=== PATIENT | female | born 1955 | race Caucasian/White ===

== ENCOUNTER 2016-10-14 23:49 | Emergency (ER) | payer BC ==
--- NOTE | ~2016-10-14 | CT2 ---
[facility] A Service of [facility] RADIOLOGY TEXT RESULTS PATIENT: DIO WARNER LOCATION: SED : 55 UNIT #: [id number] AGE: [address]: Gage Rendon DO SEX: F ORDER DR: [id number] [place] [id number] E MR#: [id number] Acc #: [id number] NAME: DIO WARNER : 1955 SEX: F STUDY DATE/TIME: 10/15/2016 3:36 UNIT: SED ROOM: STUDY DESCRIPTION: CT Abd and Pelv W Cont Attending Physician: Gage Rendon Ordering Physician: Gage Rendon Primary Care Physician: Holly Schwartz M.D. MEDICAL IMAGING REPORT This report is preliminary unless electronic signature is present. EXAM CT abdomen and pelvis with contrast INDICATION Left upper quadrant abdominal pain. TECHNIQUE Contrast-enhanced CT of the abdomen and pelvis 100 mL of Isovue-370. This CT exam was performed with one or more of the following radiation dose reduction techniques: automatic exposure control, adjustment of mA and/or kV according to patient size, and iterative reconstruction. COMPARISON None. FINDINGS ABDOMEN WITH CONTRAST: Included lung bases are clear. The liver, spleen, kidneys, adrenal glands, pancreas are unremarkable. Multiple small stones in the gallbladder. No evidence for active inflammation. Bowel loops nondilated. PELVIS WITH CONTRAST: No pelvic mass or fluid. No aggressive appearing bone lesion. IMPRESSION 1. No acute findings in the abdomen or pelvis. 2. Uncomplicated cholelithiasis. Dictated by... [facility] A Service of [facility] RADIOLOGY TEXT RESULTS PATIENT: DIO WARNER LOCATION: SED : 55 UNIT #: [id number] AGE: [address]: Gage Rendon DO SEX: F ORDER DR: Po Beckwith M.D. THIS IS AN ELECTRONICALLY VERIFIED REPORT Po Beckwith M.D. at 10/15/2016 9:58 PM DELORIS/cristiane TD: 10/15/2016 10:09 JOB #: [id number] MEDICAL IMAGING REPORT Page 1 of 1
[~2016-10-14 23:49] MED LIST: ELESTRIN26 GM; PROGESTERONE; SYNTHROID PO; SYNTHROID25 MCG
[2016-10-15 02:05] LABS: BASOPHIL% 0.4 % (0-2.5); DIFF IND NO; EOSINOPHIL% 0.1 % (0.0-7.0); HEMATOCRIT 44.1 % (35.0-45.0); HEMOGLOBIN 15.2 gm/dL (12.0-16.0); LYMPHOCYTE# 0.9 X10e3 (1.0-3.5); LYMPHOCYTE% 11.4 % (17.0-45.0); MEAN CELL VOLUME 91.9 FL (83-96); MEAN CORPUSCULAR HEMOGLOBIN 31.7 PG (28-34); MEAN CORPUSCULAR HGB CONC 34.5 g/dL (30-36); MEAN PLATELET VOLUME 8.9 FL (6.5-11.5); MONOCYTE# 0.4 X10e3 (0-1.0); MONOCYTE% 5.5 % (3.0-12.0); NEUTROPHIL# 6.4 X10e3 (1.5-7.1); NEUTROPHIL% 82.6 % (40-75); PLATELET COUNT 219 X10e3 (140-420); RED CELL DISTRIBUTION WIDTH 12.7 % (11.0-15.5); WHITE BLOOD COUNT 7.7 X10e3 (4.0-10.5)
[2016-10-15 02:30] LABS: ALBUMIN SERUM 4.4 g/dL (3.5-5.0); BILIRUBIN, DIRECT 0.8 mg/dL (0.0-0.2); BILIRUBIN,INDIRECT 1.3 mg/dL (0.0-0.9); BILIRUBIN,TOTAL 2.1 mg/dL (0.2-2.0); BUN/CREATININE RATIO 17.77; CALCIUM SERUM 10.1 mg/dL (8.4-10.2); CREATININE SERUM 0.9 mg/dL (0.6-1.4); GLOM FILT RATE Estimated 69.1 mL/min (>60); POTASSIUM 3.8 mmol/L (3.5-5.1); PROTEIN TOTAL SERUM 7.6 g/dL (6.0-8.3)
[2016-10-15 03:28] LABS: URINE SOURCE CLEAN CATCH
[2016-10-15 03:31] LABS: URINE APPEARANCE CLEAR; URINE BILIRUBIN NEG (NEG); URINE BLOOD NEG (NEG); URINE COLOR YELLOW; URINE GLUCOSE NEG (NORM); URINE KETONE NEG (NEG); URINE LEUKOCYTE ESTERASE NEG (NEG); URINE NITRATE NEG (NEG); URINE PROTEIN NEG (NEG); URINE SPECIFIC GRAVITY 1.015 (1.003-1.035)
[2016-10-15 03:32] LABS: MICRO INDICATED? NO
[2016-10-27] MEDS ORDERED: SYNTHROID25 MCG PO (11:04)
[2016-10-27] MEDS ORDERED: PROGESTERONE200 MG PO (11:04)
[2016-10-27] MEDS ORDERED: ELESTRIN26 GM TOP (11:05)
[2016-10-27] MEDS ORDERED: PREMARIN VAG CR45 GM VAG (11:06)
[2016-10-27] MEDS ORDERED: ALLEGRA PO (11:06)
[2016-10-28] MEDS ORDERED: HYDROCODON-ACE1 EAC7 PO (10:42)
[2016-10-28] MEDS ORDERED: DOCUSATE SODIU100 MG PO (10:42)
== END 2016-10-15 04:52 | disposition home or self-care (01) ==
LOC: SED 23:49
PROVIDERS: Emergency Medicine
DX: K80.20 Calculus of gallbladder without cholecystitis without obstruction (principal); R74.0 Nonspecific elevation of levels of transaminase and lactic acid dehydrogenase [LDH]; Z90.49 Acquired absence of other specified parts of digestive tract; Z79.899 Other long term (current) drug therapy
CPT/HCPCS: 36415; 74177; 80048; 80076; 81003; 82150; 83690; 85025; 96361; 96374; 96375; 99284; J2270; J2405; Q9967

== ENCOUNTER → 2016-10-27 | Outpatient (CLI) | payer BC ==
[~2016-10-27] MED LIST changes: +ALLEGRA PO; +DOCUSATE SODIU100 MG PO; +ELESTRIN26 GM TOP; +HYDROCODON-ACE1 EAC7 PO; +PREMARIN VAG CR45 GM VAG; +PROGESTERONE200 MG PO; +SYNTHROID25 MCG PO
--- NOTE | ~2016-10-27 | EKG ---
PATIENT: DIO WARNER UNIT #: [id number] Ventricular Rate: 60 BPM Atrial Rate: 60 BPM P-R Interval: 134 ms QRS Duration: 72 ms Q-T Interval: 416 ms QTC Calculation(Bezet): 416 ms P Julian: 45 degrees Calculated R Julian: -31 degrees Calculated T Julian: 21 degrees Diagnosis Line: Normal sinus rhythm with sinus arrhythmia Diagnosis Line: Left axis deviation Diagnosis Line: Low voltage QRS Diagnosis Line: Possible Anterolateral infarct , age undetermined Diagnosis Line: Abnormal ECG Diagnosis Line: No previous ECGs available Diagnosis Line: Confirmed by STEVEN ROSE MD ([id number]) on 10/27/2016 Diagnosis Line: 6:53:57 PM INTERPRETING MD: ROSE LINN
[2016-10-27 12:05] LABS: ALBUMIN SERUM 4.2 g/dL (3.5-5.0); BILIRUBIN,TOTAL 1.3 mg/dL (0.2-2.0); CALCIUM SERUM 9.6 mg/dL (8.4-10.2); GLOM FILT RATE Estimated 60.8 mL/min (>60); POTASSIUM 4.3 mmol/L (3.5-5.1); PROTEIN TOTAL SERUM 6.7 g/dL (6.0-8.3)
== END | disposition home or self-care (01) ==
LOC: CAMB 10:30 → EDSTATUS 11:00 → CAMB 11:00
PROVIDERS: Specialist
DX: Z01.818 Encounter for other preprocedural examination (principal); K80.20 Calculus of gallbladder without cholecystitis without obstruction
CPT/HCPCS: 36415; 80053; 93005

== ENCOUNTER → 2016-11-03 | Day surgery (SDC) | payer BC ==
--- NOTE | ~2016-11-03 | OR ---
Unit #: [id number] #: [id number] Patient: DIO WARNER [id number] [facility] [address] [place], [place] [address] [id number] MR#: [id number] NAME: DIO WARNER ROOM: Date of Procedure: 11/03/2016 Admission Date: 11/03/2016 Surgeon: Abdullahi Whitten M.D. : 1955 Attending Physician: Abdullahi Whitten M.D. Primary Care Physician: Holly Schwartz M.D. OPERATIVE REPORT PREOPERATIVE DIAGNOSES Chronic cholecystitis and cholelithiasis. POSTOPERATIVE DIAGNOSES Chronic cholecystitis and cholelithiasis. PROCEDURE PERFORMED Laparoscopic cholecystectomy ANESTHESIA General endotracheal anesthesia. ESTIMATED BLOOD LOSS Less than 20 mL. INDICATIONS FOR PROCEDURE Ms Warner is a 61-year-old female, who has been having episodic right upper quadrant pain radiating to the back and associated nausea. Recently, it has become exacerbated by eating. Radiologic evaluation revealed cholelithiasis with normal biliary ductal system. Preoperative liver chemistries were normal. DESCRIPTION OF PROCEDURE The patient was admitted to [facility], positively identified, transported to the operating room, and after induction of general endotracheal anesthesia, she received IV antibiotics per SCIP protocol. After being prepped and draped in usual sterile fashion, a 5-mm supraumbilical incision made. Veress needle was placed. Pneumoperitoneum was created. Then, a 5-mm trocar was placed. Laparoscope was introduced into the peritoneal cavity. Under direct vision, the epigastric and lateral ports were placed. Gallbladder was grasped and elevated. The infundibulum was identified and retracted laterally and the triangle of Calot was dissected out clearly identifying the cystic duct, gallbladder, and cystic duct-common duct junction. Posteriorly, the cystic artery was identified. Once the triangle of Calot was cleared of all loose areolar tissue, the cystic duct was swept upwards and then a single clip was placed in the cystic duct centered to gallbladder. Three clips were placed distally and the cystic duct was sharply divided. Posteriorly, the cystic artery was doubly clipped proximally and distally and divided. I then dissected the gallbladder liver bed using cautery dissection. Once it was freed up from its hepatic attachments, it was brought out through the epigastric port. There was no spillage of bile or stones. I Unit #: [id number] #: [id number] Patient: DIO WARNER rechecked the liver bed. There was excellent hemostasis. The clips were well positioned. The epigastric fascial defect was closed using a neoClose device and the closure was airtight. I then reduced pneumoperitoneum as I removed laparoscope and trocars. 0.5% Marcaine with epinephrine was infiltrated in each trocar site. The skin was closed with 4-0 Monocryl subcuticular closure and Dermabond skin adhesive. Findings and postoperative instructions were discussed with her . Dictated by... Marilyn Oropeza/fuad TD: 11/04/2016 07:43 JOB #: [id number] OPERATIVE REPORT Page 1 of 1 X Abdullahi Whitten MD X PROCEDURE OPERATIVE NOTE
== END | disposition home or self-care (01) ==
LOC: CSUR 12:00
DX: K80.10 Calculus of gallbladder with chronic cholecystitis without obstruction (principal); E03.9 Hypothyroidism, unspecified; M19.90 Unspecified osteoarthritis, unspecified site; Z90.49 Acquired absence of other specified parts of digestive tract; Z98.890 Other specified postprocedural states; Z91.040 Latex allergy status; Z86.010 Personal history of colon polyps; Z87.440 Personal history of urinary (tract) infections; Z79.899 Other long term (current) drug therapy
CPT/HCPCS: 88304; J0131; J0330; J0690; J1885; J2250; J2405; J3010